=== PATIENT | female | born 1950 | race Caucasian/White ===

== ENCOUNTER → 2017-06-07 | Outpatient (CLI) | payer OTHER ==
[~2017-06-07] MED LIST: ADULT LOW DOSE81 MG PO; ASPIRIN325 PO; COLACE100 MG PO; DEXILANT60 MG PO; FISH OIL 1,0001 EAC8 PO; IRON325 PO; LEVOTHYROXINE 0.1 MG PO; MICARDIS HCT 81 EACH PO; NORVASC5 MG PO; OMEGA-31000 M1 PO; OXYCODONE HCL 55 MG PO; SYNTHROID125 MCG PO; SYNTHROID25 MCG PO; VITAMIN B-121000 MCG PO; ZOFRAN ODT4 MG PO
== END ==
LOC: M.CT 15:34
DX: K57.30 Diverticulosis of large intestine without perforation or abscess without bleeding (principal); N39.0 Urinary tract infection, site not specified; M54.5 Low back pain; Z88.5 Allergy status to narcotic agent; Z88.2 Allergy status to sulfonamides

== ENCOUNTER → 2018-01-24 | Outpatient (CLI) | payer OTHER | LOC: M.ULTRA 15:23 | DX: R10.9 Unspecified abdominal pain (principal); M54.5 Low back pain ==